=== PATIENT | female | born 1990 | race Caucasian/White ===

== ENCOUNTER 2019-01-17 18:15 | Emergency (ER) | payer OTHER ==
[2019-01-17 19:01] VITALS: BP 129/75; PULSE 104; RESP 20; TEMP 97.9; O2SAT 100
== END 2019-01-17 19:15 | disposition home or self-care (01) | DRG 153 ==
LOC: ED 18:15
DX: J06.9 Acute upper respiratory infection, unspecified (principal); R05 Cough
CPT/HCPCS: 99282